=== PATIENT | male | born 1965 | race Caucasian/White ===

== ENCOUNTER 2022-12-08 09:10 | Emergency (ER) | payer OTHER ==
[~2022-12-08] VITALS: Ht 172.7 cm; Wt 77.0 kg
[~2022-12-08 09:10] MED LIST: NO HOME MEDS
[2022-12-08 09:19] VITALS: BP 135/95
[2022-12-08] MEDS ORDERED: HYDROcodone/acetaminophen 10/325mg tab PO ONE (11:25)
[2022-12-08] MEDS ORDERED: TRAM50TA2 PO (11:49)
== END 2022-12-08 11:57 | disposition home or self-care (01) ==
LOC: ER 09:11
DX: G89.18 Other acute postprocedural pain (principal); M25.562 Pain in left knee
CPT/HCPCS: 99281